=== PATIENT | female | born 1940 | race Caucasian/White ===

== ENCOUNTER → 2019-01-01 15:32 | Outpatient (REF) | payer OTHER, SELFPAY | LOC: LAB 15:32 | PROVIDERS: PCP Family Medicine; Visit Provider Family Medicine | DX: R05 Cough (principal); R68.83 Chills (without fever) | CPT/HCPCS: 87400 ==

== ENCOUNTER → 2019-02-02 13:05 | Outpatient (CLI) | payer OTHER, SELFPAY ==
--- NOTE | 2019-02-02 | DI.MG.S_ITS ---
BILATERAL DIGITAL SCREENING MAMMOGRAM 3D/2D WITH CAD: 02/02/2019 CLINICAL: Routine screening. Comparison is made to exams dated: 01/11/2018 mammogram, 12/21/2016 mammogram, and 01/21/2015 mammogram - [facility]. The tissue of both breasts is heterogeneously dense. This may lower the sensitivity of mammography. Current study was also evaluated with a Computer Aided Detection (CAD) system. No significant masses, calcifications, or other findings are seen in either breast. There has been no significant interval change. IMPRESSION: NEGATIVE There is no mammographic evidence of malignancy. A 1 year screening mammogram is recommended. This exam was interpreted at Station ID: [id number]. NOTE: For mammograms, a report in lay terms will be sent to the patient. Approximately 15% of breast malignancies will not be visualized mammographically. In the management of a palpable breast mass, a negative mammogram must not discourage biopsy of a clinically suspicious lesion. Electronically Signed By: Pepe em/loree:02/02/2019 13:34:55 letter sent: Normal Exam ACR BI-RADS Category 1: Negative 3341F
== END ==
PROVIDERS: PCP Family Medicine; Visit Provider Family Medicine
DX: Z12.31 Encounter for screening mammogram for malignant neoplasm of breast (principal)
CPT/HCPCS: 77063; 77067

== ENCOUNTER → 2020-03-05 08:58 | Outpatient (CLI) | payer OTHER, SELFPAY ==
[2020-03-05 10:45] LABS: Add Manual Diff / Slide Review NO; Basophils Absolute Auto 100 /uL (0-100); Basophils Percent Auto 1.3 % (0-2); Eosinophils Absolute Auto 200 /uL (0-450); Eosinophils Percent Auto 4.8 % (2-4); Hematocrit 38.1 % (36-46); Lymphocytes Absolute Auto 2100 /uL (1100-4500); Lymphocytes Percent Auto 41.8 % (25-40); Mean Corpuscular Hemoglobin 32.6 PG (26-34); Monocytes Absolute Auto 300 /uL (0-900); Monocytes Percent Auto 6.4 % (3-14); Neutrophils Absolute Auto 2300 /uL (1500-7000); Neutrophils Percent Auto 45.7 % (50-75); Platelet Count 197 X10^3/uL (150-400); Red Blood Cell Count 3.98 X10^6/uL (4.0-5.2); Red Cell Distribution Width 13.7 % (11.6-14.8); White Blood Cell Count 4.9 X10^3/uL (4.5-11.0)
[2020-03-05 11:09] LABS: Hemoglobin A1C% w Est Avg Glu 5.5 % (4.0-6.0)
[2020-03-05 11:36] LABS: Alanine Aminotransferase 17 IU/L (<35); Albumin 4.3 g/dL (3.5-5.0); Albumin Globulin Ratio 1.5 (1.0-2.8); Alkaline Phosphatase 81 U/L (38-126); Aspartate Aminotransferase 29 IU/L (14-36); Bilirubin Total 0.4 mg/dL (0.2-1.3); Blood Urea Nitrogen 15 mg/dL (7-17); Calcium 9.7 mg/dL (8.4-10.2); Carbon Dioxide 28 mmol/L (22-32); Chloride 102 mmol/L (98-107); Cholesterol 215 mg/dL (140-199); Estimated Glomerular Filt Rate > 60.0 mL/min (>60); Globulin 2.9 g/dL (1.7-4.1); Glucose 87 mg/dL (80-110); HDL Cholesterol 59 mg/dL (40-60); HEMOLYSIS < 15 (0-50); LDL Cholesterol Calculated 121 mg/dL (<100); Potassium 4.4 mmol/L (3.4-5.1); Sodium 139 mmol/L (137-145); Total Protein 7.2 g/dL (6.3-8.2); Triglycerides 173 mg/dL (35-150)
== END ==
PROVIDERS: PCP Family Medicine; Referring Provider Family Medicine; Visit Provider Family Medicine
DX: Z13.6 Encounter for screening for cardiovascular disorders (principal)
CPT/HCPCS: 36415; 80053; 80061; 83036; 85025

== ENCOUNTER → 2020-04-03 11:05 | Outpatient (CLI) | payer OTHER, SELFPAY ==
--- NOTE | 2020-04-03 | DI.MG.S_ITS ---
BILATERAL DIGITAL SCREENING MAMMOGRAM 3D/2D WITH CAD: 04/03/2020 CLINICAL: Routine screening. Comparison is made to exams dated: 02/02/2019 mammogram, 01/11/2018 mammogram, 12/21/2016 mammogram, and 01/21/2015 mammogram - [facility]. The tissue of both breasts is heterogeneously dense. This may lower the sensitivity of mammography. Current study was also evaluated with a Computer Aided Detection (CAD) system. No significant masses, calcifications, or other findings are seen in either breast. The right sternalis is again noted in the far posterior medial right breast seen only on the craniocaudal projection. There has been no significant interval change. IMPRESSION: NEGATIVE There is no mammographic evidence of malignancy. A 1 year screening mammogram is recommended. This exam was interpreted at Station ID: [id number]. NOTE: For mammograms, a report in lay terms will be sent to the patient. Approximately 15% of breast malignancies will not be visualized mammographically. In the management of a palpable breast mass, a negative mammogram must not discourage biopsy of a clinically suspicious lesion. Electronically Signed By: Pepe Johnson M.D. aty/:04/03/2020 12:20:12 letter sent: Normal Exam ACR BI-RADS Category 1: Negative 3341F
== END ==
PROVIDERS: PCP Family Medicine; Referring Provider Family Medicine; Visit Provider Family Medicine
DX: Z12.31 Encounter for screening mammogram for malignant neoplasm of breast (principal)
CPT/HCPCS: 77063; 77067

== ENCOUNTER → 2020-04-24 13:40 | Outpatient (CLI) | payer OTHER, SELFPAY ==
--- NOTE | 2020-04-24 | DI.RAD.S_ITS ---
This blank DEXA report has been sent in error by the PACS system. The correct and complete report will be forthcoming in 1-2 days. Thank you for your patience and understanding. [facility] 09[facility], 13:02. Dictated by: Pardeep Wesley M.D. on 04/28/2020 at 10:24 Approved by: Pardeep Wesley M.D. on 04/28/2020 at 10:25
== END ==
PROVIDERS: PCP Family Medicine; Referring Provider Family Medicine; Visit Provider Family Medicine
DX: M85.851 Other specified disorders of bone density and structure, right thigh (principal); Z78.0 Asymptomatic menopausal state
CPT/HCPCS: 77080

== ENCOUNTER → 2020-06-17 14:14 | Outpatient (CLI) | payer OTHER, SELFPAY ==
--- NOTE | 2020-06-17 14:34 | DI.MG.S_ITS ---
Patient Name: CICI EUGENE date: 1940 Sex: F Attending Physician: Louis Indications: Date: 06/17/2020 14:17 At the request of: IRIS CERVANTES Procedure: MM diagnostic mammo unilat LT UNILATERAL LEFT DIGITAL DIAGNOSTIC MAMMOGRAM 3D/2D: 06/17/2020 CLINICAL: Left nipple inverted. Comparison is made to exams dated: 04/03/2020 mammogram, 02/02/2019 mammogram, and 01/11/2018 mammogram - [facility]. The tissue of left breast is heterogeneously dense. This may lower the sensitivity of mammography. No significant masses, calcifications, or other findings are seen in the breast. IMPRESSION: INCOMPLETE: NEEDS ADDITIONAL IMAGING EVALUATION There is no mammographic abnormality seen in the left breast to correspond with the new nipple inversion reported by the patient, however, targeted ultrasound of the left breast is recommended and will be performed immediately following this exam. Future imaging is recommended as follows: 04/04/2021 screening mammogram. This exam was interpreted at Station ID: [id number]. NOTE: For mammograms, a report in lay terms will be sent to the patient. Approximately 15% of breast malignancies will not be visualized mammographically. In the management of a palpable breast mass, a negative mammogram must not discourage biopsy of a clinically suspicious lesion. Electronically Signed By: Sarah Major M.D. lk/:06/17/2020 14:46:16 Continued Report - Page 2 of 2 Patient Name: CICI EUGENE date: 1940 Sex: F Attending Physician: Louis Indications: Date: 06/17/2020 14:17 At the request of: IRIS CERVANTES Procedure: MM diagnostic mammo unilat LT ACR BI-RADS Category 0: Incomplete 3340F
--- NOTE | 2020-06-17 15:48 | DI.US.S_ITS ---
Patient Name: CICI EUGENE date: 1940 Sex: F Attending Physician: Louis Indications: Date: 06/17/2020 15:59 At the request of: IRIS CERVANTES Procedure: US breast LT limited ULTRASOUND OF LEFT BREAST: 06/17/2020 CLINICAL: PT states inverted left nipple for 3 weeks. No discharge. No pain. Comparison is made to exams dated: 06/17/2020 mammogram, 04/03/2020 mammogram, 02/02/2019 mammogram, 01/11/2018 mammogram, 12/21/2016 mammogram, and 01/21/2015 mammogram - [facility]. Ultrasound of the left breast was performed on the area of interest. Graham scale images of the real-time examination were reviewed. IMPRESSION: INCOMPLETE: NEEDS ADDITIONAL IMAGING EVALUATION There is no mammographic or sonographic abnormality seen in the left breast to correspond with the new nipple inversion, however, breast MRI is recommended. Future imaging is recommended as follows: 04/04/2021 screening mammogram. This exam was interpreted at Station ID: [id number]. Electronically Signed By: Sarah patel/:06/18/2020 09:38:21 Entry: - 06/18/2020 09:38:21 letter sent: Need MRI Ultrasound BI-RADS: 0 Indeterminate
== END ==
PROVIDERS: PCP Student in an Organized Health Care Education/Training Program; Referring Provider Student in an Organized Health Care Education/Training Program; Visit Provider Student in an Organized Health Care Education/Training Program
DX: R92.8 Other abnormal and inconclusive findings on diagnostic imaging of breast (principal); N64.59 Other signs and symptoms in breast
CPT/HCPCS: 76642; 77065; G0279

== ENCOUNTER → 2020-06-25 12:54 | Outpatient (CLI) | payer OTHER, SELFPAY ==
--- NOTE | 2020-06-25 13:10 | DI.MRI.S_ITS ---
Patient Name: CICI EUGENE date: 1940 Sex: F Attending Physician: Louis Indications: Date: 06/25/2020 13:00 At the request of: IRIS CERVANTES Procedure: MR breast BI wo/w con BREAST MRI OF BOTH BREASTS- WITH CAD: 06/25/2020 CLINICAL: Abnormal diagnostic imaging. Comparison is made to exams dated: 06/17/2020 ultrasound, 06/17/2020 mammogram, and 04/03/2020 mammogram - [facility]. Interpretation of this MRI was correlated with available mammograms and ultrasounds. Informed consent was obtained from the patient. Gadolinium contrast calibrated to patient weight was injected. The patient was placed prone in a dedicated breast imaging coil. Precontrast axial STIR and 3D FLASH without fat saturation sequences were obtained. Both before and after bolus injection of contrast, sequential 1-minute axial 3D FLASH with fat saturation sequences for 3 time points, with subtraction images and maximum intensity projections (MIP?s) generated. Delayed sagittal FLASH images with fat saturation were also obtained. Computer-aided detection, including computer algorithm analysis of MRI image data for lesion detection and characterization, pharmacokinetic analysis, with further physician review for interpretation, was performed. Image quality: Excellent. There is normal mild background parenchymal enhancement. Right breast: There is normal mild background parenchymal enhancement. No suspicious mass or enhancement. Normal appearance of the nipple-areolar complex. No skin thickening. No abnormal neovascularity. Left breast: There is normal mild background parenchymal enhancement. No suspicious mass or enhancement. Mildly retracted appearance of the left nipple. No associated mass or abnormal enhancement. No skin thickening. No abnormal tara-vascularity. Continued Report - Page 2 of 2 Patient Name: CICI EUGENE date: 1940 Sex: F Attending Physician: Louis Indications: Date: 06/25/2020 13:00 At the request of: IRIS CERVANTES Procedure: MR breast BI wo/w con Miscellaneous: No axillary lymphadenopathy or internal mammary lymphadenopathy. IMPRESSION: NEGATIVE Mildly retracted/inverted appearance of the left nipple with no suspicious abnormality otherwise. Future imaging is recommended as follows: 04/04/2021 screening mammogram. Precautionary mammogram and ultrasound could be obtained in 6 months, if desired clinically. This exam was interpreted at Station ID: [id number]. Electronically Signed By: Misael Nava M.D. jr/:06/25/2020 17:26:29 letter sent: Normal Exam ACR BI-RADS Category 1: Negative 3341F
== END ==
PROVIDERS: PCP Student in an Organized Health Care Education/Training Program; Referring Provider Student in an Organized Health Care Education/Training Program; Visit Provider Student in an Organized Health Care Education/Training Program
DX: R92.8 Other abnormal and inconclusive findings on diagnostic imaging of breast (principal)
CPT/HCPCS: 77049; A9579

== ENCOUNTER → 2021-03-11 08:50 | Outpatient (CLI) | payer OTHER, SELFPAY ==
[2021-03-11 09:39] LABS: Add Manual Diff / Slide Review NO; Basophils Absolute Auto 0 /uL (0-100); Basophils Percent Auto 0.9 % (0-2); Eosinophils Absolute Auto 200 /uL (0-450); Hematocrit 37.9 % (36-46); Hemoglobin 12.5 g/dL (12.0-16.0); Lymphocytes Absolute Auto 1600 /uL (1100-4500); Lymphocytes Percent Auto 38.4 % (25-40); Mean Corpuscular HGB Conc 33.1 % (30-36); Mean Corpuscular Hemoglobin 31.4 PG (26-34); Mean Corpuscular Volume 94.7 fL (80-100); Monocytes Absolute Auto 300 /uL (0-900); Monocytes Percent Auto 7.3 % (3-14); Neutrophils Absolute Auto 2000 /uL (1500-7000); Neutrophils Percent Auto 48.4 % (50-75); Platelet Count 178 X10^3/uL (150-400); Red Cell Distribution Width 13.2 % (11.6-14.8); White Blood Cell Count 4.1 X10^3/uL (4.5-11.0)
[2021-03-11 09:47] LABS: Hemoglobin A1C% w Est Avg Glu 5.5 % (4.0-6.0)
[2021-03-11 09:50] LABS: Alanine Aminotransferase 17 IU/L (<35); Albumin 3.9 g/dL (3.5-5.0); Albumin Globulin Ratio 1.3 (1.0-2.8); Alkaline Phosphatase 72 U/L (38-126); Aspartate Aminotransferase 28 IU/L (14-36); BUN Creatinine Ratio 19.8 (6-22); Bilirubin Total 0.4 mg/dL (0.2-1.3); Blood Urea Nitrogen 16 mg/dL (7-17); Calcium 9.4 mg/dL (8.4-10.2); Carbon Dioxide 26 mmol/L (22-32); Chloride 104 mmol/L (98-107); Cholesterol 198 mg/dL (140-199); Estimated Glomerular Filt Rate > 60.0 mL/min (>60); Globulin 2.9 g/dL (1.7-4.1); Glucose 97 mg/dL (80-110); HDL Cholesterol 58 mg/dL (40-60); HEMOLYSIS < 15 (0-50); LDL Cholesterol Calculated 114 mg/dL (<100); Potassium 4.3 mmol/L (3.4-5.1); Sodium 136 mmol/L (137-145); Total Protein 6.8 g/dL (6.3-8.2); Triglycerides 129 mg/dL (35-150)
[2021-03-11 10:21] LABS: TSH w/ Reflex to FT4 1.55 uIU/mL (0.47-4.68)
== END ==
PROVIDERS: PCP Student in an Organized Health Care Education/Training Program; Referring Provider Family Medicine; Visit Provider Family Medicine
DX: G47.20 Circadian rhythm sleep disorder, unspecified type (principal); Z13.220 Encounter for screening for lipoid disorders; Z13.6 Encounter for screening for cardiovascular disorders; F41.8 Other specified anxiety disorders
CPT/HCPCS: 36415; 80053; 80061; 83036; 84443; 85025

== ENCOUNTER → 2021-04-06 14:20 | Outpatient (CLI) | payer OTHER, SELFPAY ==
--- NOTE | 2021-04-06 | DI.MG.S_ITS ---
BILATERAL DIGITAL SCREENING MAMMOGRAM 3D/2D WITH CAD: 04/06/2021 CLINICAL: Routine screening. Comparison is made to exams dated: 06/17/2020 mammogram, 04/03/2020 mammogram, and 02/02/2019 mammogram - [facility]. The tissue of both breasts is heterogeneously dense. This may lower the sensitivity of mammography. Current study was also evaluated with a Computer Aided Detection (CAD) system. No significant masses, calcifications, or other findings are seen in either breast. There has been no significant interval change. IMPRESSION: NEGATIVE There is no mammographic evidence of malignancy. A 1 year screening mammogram is recommended. This exam was interpreted at Station ID: [id number]. NOTE: For mammograms, a report in lay terms will be sent to the patient. Approximately 15% of breast malignancies will not be visualized mammographically. In the management of a palpable breast mass, a negative mammogram must not discourage biopsy of a clinically suspicious lesion. Electronically Signed By: Misael Nava M.D., jr/loree:04/06/2021 15:45:54 letter sent: Normal Exam ACR BI-RADS Category 1: Negative 3341F
== END ==
PROVIDERS: PCP Family Medicine; Referring Provider Family Medicine; Visit Provider Family Medicine
DX: Z12.31 Encounter for screening mammogram for malignant neoplasm of breast (principal)
CPT/HCPCS: 77063; 77067

== ENCOUNTER → 2022-03-17 08:10 | Outpatient (CLI) | payer OTHER, SELFPAY ==
[2022-03-17 08:30] LABS: Add Manual Diff / Slide Review NO; Basophils Absolute Auto 100 /uL (0-100); Basophils Percent Auto 1.2 % (0-2); Eosinophils Absolute Auto 200 /uL (0-450); Eosinophils Percent Auto 4.9 % (2-4); Hematocrit 38.3 % (36-46); Hemoglobin 12.8 g/dL (12.0-16.0); Lymphocytes Absolute Auto 2000 /uL (1100-4500); Lymphocytes Percent Auto 41.6 % (25-40); Mean Corpuscular HGB Conc 33.4 % (30-36); Mean Corpuscular Hemoglobin 31.6 PG (26-34); Mean Corpuscular Volume 94.4 fL (80-100); Monocytes Absolute Auto 300 /uL (0-900); Monocytes Percent Auto 6.9 % (3-14); Neutrophils Absolute Auto 2200 /uL (1500-7000); Neutrophils Percent Auto 45.4 % (50-75); Platelet Count 216 X10^3/uL (150-400); Red Blood Cell Count 4.06 X10^6/uL (4.0-5.2); Red Cell Distribution Width 13.5 % (11.6-14.8); White Blood Cell Count 4.9 X10^3/uL (4.5-11.0)
[2022-03-17 08:46] LABS: Alanine Aminotransferase 15 IU/L (<35); Albumin Globulin Ratio 1.4 (1.0-2.8); Alkaline Phosphatase 78 U/L (38-126); Aspartate Aminotransferase 24 IU/L (14-36); BUN Creatinine Ratio 14.3 (6-22); Bilirubin Total 0.6 mg/dL (0.2-1.3); Blood Urea Nitrogen 12 mg/dL (7-17); Carbon Dioxide 26 mmol/L (22-32); Chloride 103 mmol/L (98-107); Cholesterol 197 mg/dL (140-199); Estimated Glomerular Filt Rate > 60 mL/min (>60); Globulin 2.8 g/dL (1.7-4.1); Glucose 96 mg/dL (80-110); HDL Cholesterol 58 mg/dL (40-60); HEMOLYSIS < 15 (0-50); LDL Cholesterol Calculated 113 mg/dL (<100); Potassium 4.4 mmol/L (3.4-5.1); Sodium 137 mmol/L (137-145); Total Protein 6.8 g/dL (6.3-8.2); Triglycerides 131 mg/dL (35-150)
[2022-03-17 09:14] LABS: TSH w/ Reflex to FT4 1.52 uIU/mL (0.47-4.68)
== END ==
PROVIDERS: PCP Family Medicine; Referring Provider Family Medicine; Visit Provider Family Medicine
DX: Z00.00 Encounter for general adult medical examination without abnormal findings (principal)
CPT/HCPCS: 36415; 80053; 80061; 84443; 85025

== ENCOUNTER → 2022-06-10 12:46 | Outpatient (CLI) | payer OTHER, SELFPAY ==
--- NOTE | 2022-06-10 | DI.MG.S_ITS ---
BILATERAL DIGITAL SCREENING MAMMOGRAM 3D/2D WITH CAD: 06/10/2022 CLINICAL: Routine screening. Comparison is made to exams dated: 04/06/2021 mammogram, 04/03/2020 mammogram, and 02/02/2019 mammogram - [facility]. Both breasts are heterogeneously dense, which may obscure small masses (category c / 51-75% glandular tissue). Current study was also evaluated with a Computer Aided Detection (CAD) system. No significant masses, calcifications, or other findings are seen in either breast. There has been no significant interval change. IMPRESSION: NEGATIVE There is no mammographic evidence of malignancy. A 1 year screening mammogram is recommended. Based on the Tyrer Cuzick model (a risk assessment model) the patient's lifetime risk is 1.3% and her 10 year risk is 0.0%. According to the ACR, ACS, and NCCN guidelines, an annual breast MRI exam along with mammogram is recommended if the patient's lifetime risk is 20% or greater. This exam was interpreted at Station ID: [id number]. NOTE: For mammograms, a report in lay terms will be sent to the patient. Approximately 15% of breast malignancies will not be visualized mammographically. In the management of a palpable breast mass, a negative mammogram must not discourage biopsy of a clinically suspicious lesion. Electronically Signed By: Sarah patel/loree:06/10/2022 13:24:46 letter sent: Normal Exam ACR BI-RADS Category 1: Negative 3341F
== END ==
PROVIDERS: PCP Family Medicine; Referring Provider Family Medicine; Visit Provider Family Medicine
DX: Z12.31 Encounter for screening mammogram for malignant neoplasm of breast (principal)
CPT/HCPCS: 77063; 77067

== ENCOUNTER → 2023-07-19 12:43 | Outpatient (CLI) | payer OTHER, SELFPAY ==
--- NOTE | 2023-07-19 | DI.MG.S_ITS ---
BILATERAL DIGITAL SCREENING MAMMOGRAM 3D/2D WITH CAD: 07/19/2023 CLINICAL: Routine screening. Comparison is made to exams dated: 06/10/2022 mammogram, 04/06/2021 mammogram, 04/03/2020 mammogram, and 02/02/2019 mammogram - [facility]. Both breasts are heterogeneously dense, which may obscure small masses (category c / 51-75% glandular tissue). Current study was also evaluated with a Computer Aided Detection (CAD) system. There is a focal asymmetry in the right breast at 6 o'clock anterior depth. This is more prominent. No other significant masses, calcifications, or other findings are seen in either breast. IMPRESSION: INCOMPLETE: NEEDS ADDITIONAL IMAGING EVALUATION The focal asymmetry in the right breast is indeterminate. Additional views with possible ultrasound are recommended. Based on the Tyrer Cuzick model (a risk assessment model) the patient's lifetime risk is 1.0% and her 10 year risk is 0.0%. According to the ACR, ACS, and NCCN guidelines, an annual breast MRI exam along with mammogram is recommended if the patient's lifetime risk is 20% or greater. This exam was interpreted at Station ID: [id number]. NOTE: For mammograms, a report in lay terms will be sent to the patient. Approximately 15% of breast malignancies will not be visualized mammographically. In the management of a palpable breast mass, a negative mammogram must not discourage biopsy of a clinically suspicious lesion. Electronically Signed By: Gunner Parra M.D. [facility] [place]/:07/19/2023 14:43:15 letter sent: Additional Imaging Needed ACR BI-RADS Category 0: Incomplete 3340F
== END ==
PROVIDERS: PCP Family Medicine; Referring Provider Family Medicine; Visit Provider Family Medicine
DX: Z12.31 Encounter for screening mammogram for malignant neoplasm of breast (principal); N64.89 Other specified disorders of breast
CPT/HCPCS: 77063; 77067

== ENCOUNTER → 2023-08-09 11:59 | Outpatient (CLI) | payer OTHER, SELFPAY ==
--- NOTE | 2023-08-09 | DI.MG.S_ITS ---
UNILATERAL RIGHT DIGITAL DIAGNOSTIC MAMMOGRAM 3D/2D WITH ADDITIONAL VIEWS: 08/09/2023 CLINICAL: Additional evaluation requested from prior study. Comparison is made to exams dated: 07/19/2023 mammogram, 06/10/2022 mammogram, and 04/06/2021 mammogram - [facility]. The right breast is heterogeneously dense, which may obscure small masses (category c / 51-75% glandular tissue). The benign focal asymmetry in the right breast at 7 o'clock anterior depth is no longer seen. This is not seen in additional views. No other significant masses or calcifications are seen in the breast. IMPRESSION: BENIGN There is no mammographic evidence of malignancy. Return to annual mammogram screening schedule is recommended. Based on the Tyrer Cuzick model (a risk assessment model) the patient's lifetime risk is 1.0% and her 10 year risk is 0.0%. According to the ACR, ACS, and NCCN guidelines, an annual breast MRI exam along with mammogram is recommended if the patient's lifetime risk is 20% or greater. This exam was interpreted at Station ID: [id number]. NOTE: For mammograms, a report in lay terms will be sent to the patient. Approximately 15% of breast malignancies will not be visualized mammographically. In the management of a palpable breast mass, a negative mammogram must not discourage biopsy of a clinically suspicious lesion. Electronically Signed By: Kiko Goff M.D. acr/:08/09/2023 12:35:15 letter sent: Normal Exam ACR BI-RADS Category 2: Benign Finding(s) 3342F
== END ==
PROVIDERS: PCP Family Medicine; Referring Provider Family Medicine; Visit Provider Family Medicine
DX: R92.8 Other abnormal and inconclusive findings on diagnostic imaging of breast (principal)
CPT/HCPCS: 77065; G0279

== ENCOUNTER → 2024-08-09 14:03 | Outpatient (CLI) | payer OTHER, SELFPAY ==
--- NOTE | 2024-08-09 14:05 | DI.MG.S_ITS ---
BILATERAL DIGITAL SCREENING MAMMOGRAM 3D/2D WITH CAD: 08/09/2024 CLINICAL: Routine screening. Comparison is made to exams dated: 07/19/2023 mammogram, 06/10/2022 mammogram, 04/06/2021 mammogram, and 08/09/2023 mammogram - [facility]. The breasts are heterogeneously dense, which may obscure small masses (category c / 51-75% glandular tissue). Current study was also evaluated with a Computer Aided Detection (CAD) system. No significant masses, calcifications, or other findings are seen in either breast. There has been no significant interval change. IMPRESSION: NEGATIVE There is no mammographic evidence of malignancy. A 1 year screening mammogram is recommended. Based on the Tyrer Cuzick model (a risk assessment model) the patient's lifetime risk is 0.7% and her 10 year risk is 0.0%. According to the ACR, ACS, and NCCN guidelines, an annual breast MRI exam along with mammogram is recommended if the patient's lifetime risk is 20% or greater. This exam was interpreted at Station ID: [id number]. NOTE: For mammograms, a report in lay terms will be sent to the patient. Approximately 15% of breast malignancies will not be visualized mammographically. In the management of a palpable breast mass, a negative mammogram must not discourage biopsy of a clinically suspicious lesion. Electronically Signed By: Gunner koenig/loree:08/09/2024 18:40:41 letter sent: Normal Exam ACR BI-RADS Category 1: Negative
== END ==
PROVIDERS: PCP Family Medicine; Referring Provider Family Medicine; Visit Provider Family Medicine
DX: Z12.31 Encounter for screening mammogram for malignant neoplasm of breast (principal); R92.333 Mammographic heterogeneous density, bilateral breasts
CPT/HCPCS: 77063; 77067

== ENCOUNTER 2025-04-13 11:18 | Emergency (ER) | payer OTHER, SELFPAY ==
[2025-04-13] VITALS (11 sets, daily range): BP systolic 135–195; BP diastolic 52–78; PULSE 61–90; RESP 14–18; TEMP 36.6; O2SAT 95–99; BMI 27.2
--- NOTE | 2025-04-13 11:34 | DI.RAD.S_ITS ---
PROCEDURE: XR CHEST 1V INDICATIONS: Chest Pain TECHNIQUE: One view of the chest was acquired. COMPARISON: None. FINDINGS AND IMPRESSION: No dense airspace disease or pleural effusion on this single view study. Normal heart size. Prominent appearance of the aortic arch, indeterminate on radiography. Degenerative osseous findings. Dictated by: Aleksandr Moreau M.D. on 04/13/2025 at 11:30 Approved by: Aleksandr Moreau M.D. on 04/13/2025 at 11:31
--- NOTE | 2025-04-13 11:43 | EKG_ITS ---
[facility] [address] [place] [address] Test Date: 2025-04-13 Pat Name: Nicci Rodriguez Department: [facility] Room: Gender: Female [employer]ant: AUGUST[place] : 1940 Requested By: Order Number: [id number] Reading MD: Muari Quiñonez MD Measurements Intervals [place] Rate: 66 P: 57 [place]: 170 QRS: -17 QRSD: 82 T: 35 QT: 396 QTc: 415 Interpretive Statements Sinus rhythm with frequent premature ventricular complexes in a pattern of bigeminy Septal infarct , age undetermined NO PRIOR TRACING Electronically Signed On 04-14-2025 8:27:37 PDT by Mauri Quiñonez MD
[2025-04-13 11:51] LABS: Add Manual Diff / Slide Review NO; Hematocrit 38.7 % (36-46); Hemoglobin 13.1 g/dL (12.0-16.0); Lymphocytes Absolute Auto 2000 /uL (1100-4500); Mean Corpuscular HGB Conc 33.9 % (30-36); Mean Corpuscular Hemoglobin 32.6 PG (26-34); Mean Corpuscular Volume 96.0 fL (80-100); Platelet Count 170 X10^3/uL (150-400)
--- NOTE | 2025-04-13 11:58 | DI.CT.S_ITS ---
PROCEDURE: CT HEAD/BRAIN WO CON INDICATIONS: dizziness TECHNIQUE: Noncontrast 4.5 mm thick angled axial sections acquired from the foramen magnum to the vertex, with coronal and sagittal reformats. For radiation dose reduction, the following was used: automated exposure control, adjustment of mA and/or kV according to patient size. COMPARISON: None. FINDINGS: Image quality: Diagnostic CSF spaces: Basal cisterns are patent. Lateral ventricles are symmetric. Volume: Vascular calcifications. 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 Volume loss is present. These findings are moderate Brain: No intracranial hemorrhage. Graham-white differentiation is grossly maintained. Craniofacial structures: No significant paranasal sinus opacity. IMPRESSION: No acute intracranial abnormality If there is high concern for parenchymal pathology, consider further evaluation with MRI. Dictated by: Aleksandr Moreau M.D. on 04/13/2025 at 11:22 Approved by: Aleksandr Moreau M.D. on 04/13/2025 at 11:24
[2025-04-13 11:59] LABS: INR 1.0 (0.9-1.3); Prothrombin Time 10.9 SECONDS (9.4-12.5)
[2025-04-13 12:01] LABS: PTT Partial Thromboplastin Tim 30 SECONDS (25.1-36.5)
[2025-04-13 12:10] LABS: Alanine Aminotransferase 16 IU/L (<35); Albumin 4.3 g/dL (3.5-5.0); Albumin Globulin Ratio 1.4 (1.0-2.8); Alkaline Phosphatase 82 U/L (38-126); Blood Urea Nitrogen 19 mg/dL (7-17); Calcium 9.3 mg/dL (8.4-10.2); Carbon Dioxide 29 mmol/L (22-32); Chloride 101 mmol/L (98-107); Creatine Kinase 40 U/L (30-135); Estimated Glomerular Filt Rate > 60 mL/min (>60); Globulin 3.0 g/dL (1.7-4.1); Glucose 96 mg/dL (70-99); HEMOLYSIS < 15 (0-50); Lipase 76 U/L (23-300); Magnesium 2.1 mg/dL (1.6-2.3); Potassium 4.3 mmol/L (3.4-5.1); Sodium 134 mmol/L (137-145); Total Protein 7.3 g/dL (6.3-8.2)
[2025-04-13 12:21] LABS: NT-proBNP (BNP-Adult 18+) 158 pg/mL (<450); Troponin I < 0.012 ng/mL (0.01-0.034)
--- NOTE | 2025-04-13 14:08 | ED.DIZZY ---
HPI - Dizziness General Chief Complaint: Dizziness Stated Complaint: [facility]: Dizzy with heart palpatations Time Seen by Provider: 04/13/25 11:30 History of Present Illness HPI Narrative: 85-year-old female with no significant past medical history presents with lightheaded dizziness has been intermittent and ongoing for the past few months worse today. She was seen by her PCP a few months ago for her annual and had mentioned it to him and he had reviewed the lab work and thought she was dehydrated for which she has kept hydrated since then but has continued to be intermittently symptomatic including this morning. Patient denies active chest pain, shortness of breath, cough, runny nose, sore throat, nausea, vomiting, diarrhea, sick contacts, blurred vision, difficulty swallowing, speaking, weakness, in the arms or legs, gait instability. Other than what is stated 14 point review of system is negative. Related Data Home Medications ?Medication ?Instructions ?Recorded ?Confirmed melatonin 5 mg tablet 5 mg PO PRN PRN ##0 11/14/16 04/13/25 multivitamin (Multiple Vitamins 1 tab PO QDAY ##0 11/14/16 04/13/25 tablet) Previous Rx's ?Medication ?Instructions ?Recorded meclizine 25 mg tablet 25 mg PO TID #30 tabs 04/13/25 Allergies Allergy/AdvReac Type Severity Reaction Status Date / Time No Known Allergies Allergy Uncoded 04/13/25 10:55 Review of Systems Review of Systems ROS Unobtainable: All systems reviewed & are unremarkable except as noted in HPI and below Exam Narrative Exam Narrative: GENERAL: [85] year old patient appears stated age. Well-developed patient, in mild distress. HEAD: Atraumatic. Normocephalic. EYES: Pupils equal round and reactive. Extraocular motions intact. No scleral icterus. No injection or drainage. ENT: Nose without bleeding, purulent drainage. Throat without erythema, tonsillar hypertrophy or exudate. Airway patent. NECK: Trachea midline. Non tender CARDIOVASCULAR: Regular rate and rhythm without murmurs, gallops, or rubs. RESPIRATORY: Clear to auscultation. Breath sounds equal bilaterally. No wheezes, rales, or rhonchi. GASTROINTESTINAL: Abdomen soft, non-tender, nondistended. EXTREMITIES: No edema or joint tenderness. BACK: Nontender without deformity or crepitance. No flank tenderness. NEURO: AOx3. GCS 15 nonfocal neuro exam hoxgnl-bl-jabe opposite kyhk-vy-zxki rapid alternating movements negative pronator drift 5/5 upper and lower extremity SKIN: No rash or erythema of visible areas Initial Vital Signs Initial Vital Signs: Vital Signs Temperature 97.9 F 04/13/25 11:29 Pulse Rate 68 04/13/25 11:29 Respiratory Rate 16 04/13/25 11:29 Blood Pressure 170/52 H 04/13/25 11:29 Pulse Oximetry 98 04/13/25 11:29 Oxygen Delivery Method Room Air 04/13/25 11:29 Course Orders Ordered: ED Orders 04/13/25 11:34 XR chest 1V Stat EKG-12 Lead Stat 04/13/25 11:39 Complete Blood Count AUTO DIFF Stat Comprehensive Metabolic Panel Stat Lipase Stat Magnesium Stat NT-proBNP (BNP-Adult 18+) Stat PTT Partial Thromboplastin Frantz Stat Prothrombin Time INR Stat Troponin & CK Cardiac Panel Stat 04/13/25 11:58 CT head/brain wo con Stat 04/13/25 14:12 CT angio head and neck Stat Vital Signs Vital signs: Vital Signs - 8 hr 04/13/25 11:29 04/13/25 13:46 04/13/25 13:48 Temperature 97.9 F Pulse Rate 68 67 61 Respiratory Rate 16 Blood Pressure 170/52 H Pulse Oximetry 98 97 99 Oxygen Delivery Method Room Air 04/13/25 13:48 04/13/25 14:00 04/13/25 14:01 Temperature Pulse Rate 64 Respiratory Rate 15 Blood Pressure 195/78 H 145/64 H Pulse Oximetry 99 Oxygen Delivery Method 04/13/25 14:01 04/13/25 14:30 04/13/25 15:00 Temperature Pulse Rate 65 73 66 Respiratory Rate 15 16 Blood Pressure Pulse Oximetry 98 98 96 Oxygen Delivery Method 04/13/25 15:03 04/13/25 15:03 04/13/25 15:30 Temperature Pulse Rate 90 66 Respiratory Rate 18 14 Blood Pressure 154/78 H Pulse Oximetry 97 96 Oxygen Delivery Method 04/13/25 15:31 04/13/25 15:31 04/13/25 16:00 Temperature Pulse Rate 67 Respiratory Rate Blood Pressure 135/61 142/68 H Pulse Oximetry 95 Oxygen Delivery Method 04/13/25 16:00 Temperature Pulse Rate 69 Respiratory Rate 14 Blood Pressure Pulse Oximetry 95 Oxygen Delivery Method MDM - Dizziness Lab Data 04/13/25 11:39 04/13/25 11:39 Labs: Lab Results 04/13/25 Range/Units 11:39 WBC 5.8 (4.5-11.0) X10^3/uL RBC 4.03 (4.0-5.2) X10^6/uL Hgb 13.1 (12.0-16.0) g/dL Hct 38.7 (36-46) % MCV 96.0 (80-100) fL MCH 32.6 (26-34) PG MCHC 33.9 (30-36) % RDW 13.5 (11.6-14.8) % Plt Count 170 (150-400) X10^3/uL Neut % (Auto) 51.9 (50-75) % Lymph % (Auto) 35.4 (25-40) % [place] % (Auto) 8.8 (3-14) % Eos % (Auto) 3.1 (2-4) % Baso % (Auto) 0.8 (0-2) % Neut # (Auto) 3000 (1941-3385) /uL Lymph # (Auto) 2000 (5142-9123) /uL [place] # (Auto) 500 (0-900) /uL Eos # (Auto) 200 (0-450) /uL Baso # (Auto) 0 (0-100) /uL PT 10.9 (9.4-12.5) SECONDS INR 1.0 (0.9-1.3) APTT 30 (25.1-36.5) SECONDS Sodium 134 L (137-145) mmol/L Potassium 4.3 (3.4-5.1) mmol/L Chloride 101 (98-107) mmol/L Carbon Dioxide 29 (22-32) mmol/L BUN 19 H (7-17) mg/dL Creatinine 0.91 (0.52-1.04) mg/dL Estimated GFR > 60 (>60) mL/min BUN/Creatinine Ratio 20.9 (6-22) Glucose 96 (70-99) mg/dL Calcium 9.3 (8.4-10.2) mg/dL Magnesium 2.1 (1.6-2.3) mg/dL Total Bilirubin 0.6 (0.2-1.3) mg/dL AST 28 (14-36) IU/L ALT 16 (<35) IU/L Alkaline Phosphatase 82 (38-126) U/L Total Creatine Kinase 40 (30-135) U/L Troponin I < 0.012 (0.01-0.034) ng/mL NT-Pro-B Natriuret Pep 158 (<450) pg/mL Total Protein 7.3 (6.3-8.2) g/dL Albumin 4.3 (3.5-5.0) g/dL Globulin 3.0 (1.7-4.1) g/dL Albumin/Globulin Ratio 1.4 (1.0-2.8) Lipase 76 (23-300) U/L Imaging Data CT scan - head: Radiologist's Impression: [address] [address] [address] Scan Report Signed Patient: Nicci Rodriguez MR#: [id number] : 1940 Acct:[id number] Age/Sex: 85 / F Date of Service: 04/13/25 Loc: ED Accession Number: [id number] Procedure: CT head/brain wo con Ordering Provider: Mauri Barron D.O. PROCEDURE: CT HEAD/BRAIN WO CON INDICATIONS: dizziness TECHNIQUE: Noncontrast 4.5 mm thick angled axial sections acquired from the foramen magnum to the vertex, with coronal and sagittal reformats. For radiation dose reduction, the following was used: automated exposure control, adjustment of mA and/or kV according to patient size. COMPARISON: None. FINDINGS: Image quality: Diagnostic CSF spaces: Basal cisterns are patent. Lateral ventricles are symmetric. Volume: Vascular calcifications. 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 Volume loss is present. These findings are moderate Brain: No intracranial hemorrhage. Graham-white differentiation is grossly maintained. Craniofacial structures: No significant paranasal sinus opacity. IMPRESSION: No acute intracranial abnormality If there is high concern for parenchymal pathology, consider further evaluation with MRI. Chest x-ray: Radiologist's Impression: [address] [address] XRay Report Signed Patient: Nicci Rodriguez MR#: [id number] : 1940 Acct:[id number] Age/Sex: 85 / F Date of Service: 04/13/25 Loc: ED Accession Number: [id number] Procedure: XR chest 1V Ordering Provider: Mauri Barron D.O. PROCEDURE: XR CHEST 1V INDICATIONS: Chest Pain TECHNIQUE: One view of the chest was acquired. COMPARISON: None. FINDINGS AND IMPRESSION: No dense airspace disease or pleural effusion on this single view study. Normal heart size. Prominent appearance of the aortic arch, indeterminate on radiography. Degenerative osseous findings. Dictated by: Aleksandr Moreau M.D. on 04/13/2025 at 11:30 CT - cervical spine: Radiologist's Impression: [place] [address] CT Scan Report Signed Patient: Nicci Rodriguez MR#: [id number] : 1940 Acct:[id number] Age/Sex: 85 / F Date of Service: 04/13/25 Loc: ED Accession Number: [id number] Procedure: CT angio head and neck Ordering Provider: Mauri Barron D.O. PROCEDURE: CT ANGIO HEAD AND NECK INDICATIONS: headache dizziness TECHNIQUE: After the administration of intravenous contrast, 1 mm thick sections acquired from the aortic arch through the [facility] [place]. 3-dimensional xcvbtfv-rpxkkxntq-aiietumane (MIP) and/or volume rendering reformats were acquired of the central intracranial vasculature and neck separately. For radiation dose reduction, the following was used: automated exposure control, adjustment of mA and/or kV according to patient size. COMPARISON: None. FINDINGS: Image quality: Diagnostic HEAD ANGIOGRAPHY: Anterior circulation: ICAs: Mild cavernous calcifications ACAs: Patent MCAs: Mild intracranial irregularities, overall patent AComm: No aneurysm Venous sinuses: Patent, partially evaluated Posterior circulation: Dominance: Slightly left Dom Vertebral arteries: Patent Basilar artery: Patent PComms: No aneurysm carry all driver: Patent NECK ANGIOGRAPHY: Aortic arch and subclavian arteries: Mild calcifications CCAs: Patent ICA origins (by NASCET criteria): No hemodynamically significant narrowing. ICAs: Patent ECAs: Origins are patent. Vertebral arteries: Patent Soft tissues: No enlarged lymph nodes by size criteria. Heterogeneous thyroid multiple nodules, the largest on the left measuring over 2 cm Lung apices: No apical pneumothorax Bones: There are degenerative osseous findings. IMPRESSION: No large vessel occlusion or high-grade stenosis. Mild scattered atherosclerotic calcifications including intracranial involvement. If there is high concern for infarction, consider MRI. Other findings above. Any quantitative measurements of stenosis were performed using NASCET criteria. ECG Data Interpretation: Sinus Rhythm HR 66 NE 170 QRS [address]-t wave change No previous EKG to compare MDM Narrative Medical decision making narrative: All lab work, vital signs, nurse triage note, medication list, previous ER visits, and all imaging studies reviewed. CT a head and neck and CT head showed no acute process along with chest x-ray. NA 134 troponin less than 0.012. Differential diagnosis includes subdural, epidural, subarachnoid hemorrhage, pneumonia, sepsis, UTI, dehydration, orthostatic hypotension, electrolyte derangement, viral labyrinthitis, Meniere's vertigo. D/c home on meclizine Discharge Plan Departure Patient Disposition: Home Clinical Impression: Dizziness Instructions: DI for Vertigo Activity Restrictions/Additional Instructions: Return with new or worsening symptoms. Keep hydrated. Follow up PCP this week for re-evaluation. Take your medicines as directed. Prescriptions: New meclizine 25 mg tablet 25 mg PO TID Qty: 30 0RF No Action multivitamin [Multiple Vitamins] 1 EACH tablet 1 tab PO QDAY Qty: 0 melatonin 5 MG tablet 5 mg PO PRN PRNQty: 0 Referrals: Nahun Jenkins MD [Primary Care Provider, Family Practice] Stand Alone Forms: Patient Portal/API
--- NOTE | 2025-04-13 14:12 | DI.CT.S_ITS ---
PROCEDURE: CT ANGIO HEAD AND NECK INDICATIONS: headache dizziness TECHNIQUE: After the administration of intravenous contrast, 1 mm thick sections acquired from the aortic arch through the [place]. 3-dimensional lfddwmo-gwrgggenz-potpxykdlb (MIP) and/or volume rendering reformats were acquired of the central intracranial vasculature and neck separately. For radiation dose reduction, the following was used: automated exposure control, adjustment of mA and/or kV according to patient size. COMPARISON: None. FINDINGS: Image quality: Diagnostic HEAD ANGIOGRAPHY: Anterior circulation: ICAs: Mild cavernous calcifications ACAs: Patent MCAs: Mild intracranial irregularities, overall patent AComm: No aneurysm Venous sinuses: Patent, partially evaluated Posterior circulation: Dominance: Slightly left Dom Vertebral arteries: Patent Basilar artery: Patent PComms: No aneurysm billing checker: Patent NECK ANGIOGRAPHY: Aortic arch and subclavian arteries: Mild calcifications CCAs: Patent ICA origins (by NASCET criteria): No hemodynamically significant narrowing. ICAs: Patent ECAs: Origins are patent. Vertebral arteries: Patent Soft tissues: No enlarged lymph nodes by size criteria. Heterogeneous thyroid multiple nodules, the largest on the left measuring over 2 cm Lung apices: No apical pneumothorax Bones: There are degenerative osseous findings. IMPRESSION: No large vessel occlusion or high-grade stenosis. Mild scattered atherosclerotic calcifications including intracranial involvement. If there is high concern for infarction, consider MRI. Other findings above. Any quantitative measurements of stenosis were performed using NASCET criteria. Dictated by: Aleksandr Moreau M.D. on 04/13/2025 at 13:36 Approved by: Aleksandr Moreau M.D. on 04/13/2025 at 13:41
[2025-04-13] MEDS: MECLIZINE HCL 12.5 MG TABLET 25 MG PO (16:47)
== END 2025-04-13 16:51 | disposition home or self-care (01) ==
PROVIDERS: Emergency Provider Family Medicine; PCP Family Medicine
DX: R42 Dizziness and giddiness (principal); R07.9 Chest pain, unspecified; R51.9 Headache, unspecified
CPT/HCPCS: 36415; 70450; 70496; 70498; 71045; 80053; 82550; 83690; 83735; 83880; 84484; 85025; 85610; 85730; 93005; 93010; 99284; Q9967

== ENCOUNTER → 2025-09-24 16:44 | Outpatient (CLI) | payer OTHER, SELFPAY ==
--- NOTE | 2025-09-24 16:44 | DI.MG.S_ITS ---
MM screening mammo BI: 09/24/2025. BI-RADS: 1 CLINICAL: 85-year old female for bilateral screening mammogram. Tyrer-Cuzick lifetime risk of 0.4%. No personal or first-degree family history of breast cancer. PRIOR EXAMS 08/09/2024, 08/09/2023, 07/19/2023, 06/10/2022, MAMMOGRAPHY TECHNIQUE: 2D and 3D (tomosynthesis) digital mammographic views obtained, with additional images as needed for full coverage. Current study was also evaluated with a Computer Aided Detection (CAD) system. DENSITY C. The breasts are heterogeneously dense, which may obscure small masses. MAMMOGRAPHY FINDINGS Bilateral: No suspicious mass, asymmetry, microcalcification, or other abnormality seen. IMPRESSION: * No evidence of malignancy. RECOMMENDATIONS Bilateral * Annual screening mammography. OVERALL ASSESSMENT CATEGORY BI-RADS-1: Negative. The [employer] recommends annual screening mammography beginning at age 40 for women with average risk of breast cancer. ELECTRONICALLY SIGNED: Gunner Parra M.D. on 09/25/2025 at 01:13:38 PM PT Interpreting Station ID: [id number]
== END ==
PROVIDERS: PCP Family Medicine; Referring Provider Family Medicine; Visit Provider Family Medicine
DX: Z12.31 Encounter for screening mammogram for malignant neoplasm of breast (principal); R92.333 Mammographic heterogeneous density, bilateral breasts
CPT/HCPCS: 77063; 77067